=== PATIENT | male | born 1960 | race Hispanic/Latino ===

== ENCOUNTER 2024-06-15 21:44 | Emergency (ER) | payer MEDICARE ==
[~2024-06-15] VITALS: Ht 157.5 cm; Wt 73.0 kg
--- NOTE | 2024-06-15 21:51 | EKG ---
[facility] Test Date: 2024-06-15 Test Time: 21:48:43 Pat Name: VAN YOUNG Department: ED Room: Gender: M Dye Line Operator: [id number] : 1960 Requested By: OMI VILLATORO Order Number: [id number] Reading MD: Matt Wilburn Measurements Intervals [place] Rate: 80 P: 34 DE: 144 QRS: 8 QRSD: 111 T: 244 QT: 408 QTc: 469 Interpretive Statements Sinus rhythm Repol abnrm suggests ischemia, lateral leads Compared to ECG 05/29/2024 08:41:30 Early repolarization now present Possible ischemia now present Sinus tachycardia no longer present ST (T wave) deviation no longer present Electronically Signed On 06-16-2024 21:47:25 VICE INVESTIGATOR by Matt Wilburn Please click the below link to view image of tracing.
[2024-06-15 22:10] LABS: BASOPHILS # (AUTO) 0.07 K/uL (0.00-0.20); BASOPHILS % (AUTO) 0.8 % (0.0-5.0); EOSINOPHILS # (AUTO) 0.29 K/uL (0.00-0.70); EOSINOPHILS % (AUTO) 3.2 % (0.0-8.0); HEMATOCRIT 35.6 % (42-54); IMMATURE GRANULOCYTE ABSOLUTE 0.04 K/uL (0-1); LYMPHOCYTES # (AUTO) 2.5 K/uL (1.0-4.8); LYMPHOCYTES % (AUTO) 27.2 % (21.0-51.0); MEAN CORPUSCULAR HEMOGLOBIN 29.5 pg (27.0-33.0); MEAN CORPUSCULAR HGB CONC 31.7 g/dL (32.0-36.0); MONOCYTES # (AUTO) 0.9 K/uL (0.1-1.0); MONOCYTES % (AUTO) 9.6 % (3.0-13.0); NEUTROPHILS # (AUTO) 5.4 K/uL (1.8-7.7); NEUTROPHILS % (AUTO) 58.8 % (40.0-77.0); PLATELET COUNT (AUTO) 481 K/uL (130-400); RED BLOOD CELL COUNT(AUTO) 3.83 MIL/uL (4.50-6.20); RED CELL DISTRIBUTION WIDTH 14.1 % (11.0-15.5); WHITE BLOOD COUNT (AUTO) 9.2 K/uL (4.8-10.8)
[2024-06-15 22:20] LABS: CREATININE 1.4 mg/dL (0.5-1.3); POTASSIUM 3.8 mmol/L (3.5-5.1)
[2024-06-15] MEDS: PANTOPrazole 40 MG/VIAL IVP ONE (22:21)
[2024-06-15] MEDS: MAG/ALUM/SIMETH 30 ML UDCUP PO PRN (22:21)
[2024-06-15] MEDS: LIDOCAINE HCL 2% VISCOUS 15 ML UDCUP PO ONE (22:21)
[2024-06-15 22:22] LABS: INR 0.95 (0.85-1.15); PROTHROMBIN TIME 10.7 SEC (9.6-11.6)
[2024-06-15 22:23] LABS: PARTIAL THROMBOPLASTIN TIME 25.5 SEC (26.3-35.5)
[2024-06-15 22:33] LABS: B-TYPE NATRIURETIC PEPTIDE 383 pg/mL (0-100)
--- NOTE | 2024-06-15 22:33 | NUR ---
PENDING GFR RESULTS, IV SITE, & CONSENT FOR CT EXAM.
[2024-06-15 22:37] LABS: BILIRUBIN,TOTAL 0.4 mg/dL (0.2-1.0)
[2024-06-15 22:38] LABS: ALBUMIN 2.7 g/dL (3.5-5.0); TOTAL PROTEIN, SERUM 7.5 g/dL (6.0-8.3)
[2024-06-15] MEDS ORDERED: IOHEXOL-350 75 ML VIAL IV ONE (22:44)
[2024-06-15 22:50] LABS: BILIRUBIN,DIRECT 0.1 mg/dL (0.0-0.3)
--- NOTE | 2024-06-15 23:19 | HMCIMG ---
CT ABDOMEN/PELVIS W/CONTRAST HISTORY: Abdominal pain COMPARISON: None TECHNIQUE: Multiple sequential axial images of the abdomen and pelvis were obtained from the dome of the diaphragm through symphysis pubis. Patient was given 75 cc of Omnipaque through intravenous route. Oral contrast was not given. FINDINGS: There is small left pleural effusion. There is no evidence of parenchymal disease or pulmonary nodule of the visualized lower lungs. Degenerative changes of the thoracolumbar spine are present. The heart is not enlarged. Gallbladder is distended with gallstones. Liver measures 15.3 cm. The liver, spleen, adrenal glands and pancreas are unremarkable. There is no evidence of hydronephrosis bilaterally. There are mild bilateral renal cortical cysts scarring with small renal cysts. No evidence of renal stone is seen. Fecal material is seen in the colon. There are normal size retroperitoneal and mesenteric lymph nodes. No ascites is seen. Atherosclerotic changes are present. Appendix is not well seen limiting evaluation. Pelvic sidewalls are symmetric bilaterally. Bladder is well distended without wall thickening. IMPRESSION: 1. Distended gallbladder with gallstones. Small left pleural effusion. CT was performed with one or more following dose reduction techniques: automated exposure control, adjustment of the mA and kv according to patient's size, or use of a iterative reconstruction technique.
[2024-06-15] MEDS: morPHINE 2 MG SYG IVP ONE (23:34)
[2024-06-16 00:24] LABS: APPEARANCE,URINE CLEAR (CLEAR); BILIRUBIN,URINE NEGATIVE (NEGATIVE); COLOR,URINE LIGHT-YELLOW (YELLOW); GLUCOSE, URINE (UA) 500 mg/dL (NEGATIVE); KETONES,URINE NEGATIVE (NEGATIVE); LEUKOCYTE ESTERASE ,URINE NEGATIVE Leu/uL (NEGATIVE); NITRATE,URINE NEGATIVE (NEGATIVE); OCCULT BLOOD,URINE NEGATIVE (NEGATIVE); PH,URINE 5.5 (5.0-8.0); PROTEIN,URINE 20 mg/dL (NEGATIVE); UROBILINOGEN,URINE 0.2 mg/dL (0.2-1.0)
[2024-06-16 00:27] LABS: ADD UA MICROSCOPIC YES
[2024-06-16 00:28] LABS: BACTERIA,URINE FEW /HPF (None Seen); MUCUS,URINE FEW LPF (None Seen); SQUAMOUS EPITHELIAL CELL,UR RARE /HPF (0-2); WBC,URINE 0-1 /HPF (0-1)
--- NOTE | 2024-06-16 01:45 | HMCIMG ---
CHEST 1VW HISTORY: Chest pain COMPARISON: 06/07/2024 FINDINGS: A frontal projection of the chest was obtained. No acute pulmonary infiltrates is seen. The heart is borderline enlarged. Poststernotomy changes are seen. Prominent interstitial markings are seen. Degenerative changes are seen. IMPRESSION: 1. No acute pulmonary infiltrate is seen.
--- NOTE | 2024-06-16 02:19 | ERN ---
General Chief Complaint: Abdominal Pain Stated Complaint: ABD PAIN Time Seen by MD: 21:47 Time Seen by Midlevel: 21:47 Source: patient History of Present Illness Initial Comments 63-year-old male who presents to the ED due to abdominal pain onset 2 hours prior to arrival. States he was eating tacos with hot sauce prior to the abdominal pain. Reports nausea, vomiting, diarrhea but denies any chest pain, fever or further associated symptoms. CABG performed on 05/28/[address] Adam ruelas. Patient is currently taking Plavix. Allergies: Coded Allergies: No Known Drug Allergies (Unverified Allergy, Unknown, 05/27/24) Home Meds No Active Prescriptions or Reported Meds Past Medical History Past Medical History: High Cholesterol, [place], Other Medical History Other: POOR HISTORIAN Past Surgical History: Appendectomy, CABG ROS Dictation Constitutional: Negative for fever,chills, and weight loss Eyes: Negative for injury, pain,redness, and discharge ENT: Negative for injury,pain or swelling Cardiovascular: Negative for chest pain, palpitations, and edema Respiratory: Negative for shortness of breath, cough, and wheezing, Abdomen/GI: Positive for abdominal pain, nausea, vomiting, diarrhea Negative for constipation Back: Negative for injury and pain : Negative for painful urination, bleeding or discharge MS/Extremity: Negative for injury and deformity Skin: Negative for rash, and discoloration Neuro: Negative for headache, weakness, numbness, tingling, and seizure Psych: Negative for suicide ideation, homicidal ideation, and hallucinations Physical Exam Physical Exam Dictation General: awake, alert, no acute distress Head/Face: Normocephalic, atraumatic Eyes: normal conjuctiva ENT: oral mucosa moist Neck: Normal range of motion Cardiovascular: RRR, normal S1/S2 Respiratory: CTAB, no respiratory distress, no rales or wheezes Abdomen: Soft, mild epigastric and right upper quadrant tenderness, non- distended, no guarding or rebound. Skin: Warm, dry, normal turgor, no rash MS/Extremity: Pulses equal, no cyanosis, neurovascular intact, FROM Neuro: COAx4, GCS 15, no neurological deficits, normal gait, Psych: Normal behavior, mood, and affect normal Results Laboratory and Microbiology Lab and Micro Result Laboratory Tests Test 06/15/24 00:00 06/15/24 21:58 06/15/24 22:22 Urine Color LIGHT-YELLOW (YELLOW) Urine Appearance CLEAR (CLEAR) Urine pH 5.5 (5.0-8.0) Urine Specific Cecilia 1.031 (1.001-1.031) Urine Protein 20 mg/dL (NEGATIVE) H Urine Glucose (UA) 500 mg/dL (NEGATIVE) H Urine Ketones NEGATIVE mg/dL (NEGATIVE) Urine Occult Blood NEGATIVE (NEGATIVE) Urine Nitrate NEGATIVE (NEGATIVE) Urine Bilirubin NEGATIVE mg/dL (NEGATIVE) Urine Urobilinogen 0.2 mg/dL (0.2-1.0) Urine Leukocyte Esterase NEGATIVE Bharathi/uL Urine RBC 2-5 /HPF (0-1) H Urine WBC 0-1 /HPF (0-1) Urine Squamous Epithelial Cells RARE /HPF (0-2) Urine Bacteria FEW /HPF (None Seen) White Blood Count 9.2 K/uL (4.8-10.8) Red Blood Count 3.83 MIL/uL (4.50-6.20) L Hemoglobin 11.3 g/dL (14.0-18.0) L Hematocrit 35.6 % (42-54) L Mean Corpuscular Volume 93.0 fL (79-99) Mean Corpuscular Hemoglobin 29.5 pg (27.0-33.0) Mean Corpuscular Hemoglobin Concent 31.7 g/dL (32.0-36.0) L Red Cell Distribution Width 14.1 % (11.0-15.5) Platelet Count 481 K/uL (130-400) H Mean Platelet Volume 9.9 fL (7.5-10.5) Immature Granulocyte % (Auto) 0.4 % (0-1) Neutrophils (%) (Auto) 58.8 % (40.0-77.0) Lymphocytes (%) (Auto) 27.2 % (21.0-51.0) Monocytes (%) (Auto) 9.6 % (3.0-13.0) Eosinophils (%) (Auto) 3.2 % (0.0-8.0) Basophils (%) (Auto) 0.8 % (0.0-5.0) Neutrophils # (Auto) 5.4 K/uL (1.8-7.7) Lymphocytes # (Auto) 2.5 K/uL (1.0-4.8) Monocytes # (Auto) 0.9 K/uL (0.1-1.0) Eosinophils # (Auto) 0.29 K/uL (0.00-0.70) Basophils # (Auto) 0.07 K/uL (0.00-0.20) Absolute Immature Granulocyte (auto 0.04 K/uL (0-1) Nucleated Red Blood Cells 0.0 % (0.0-0.19) Prothrombin Time 10.7 SEC (9.6-11.6) Prothromb Time International Ratio 0.95 (0.85-1.15) Activated Partial Thromboplast Time 25.5 SEC (26.3-35.5) L Sodium Level 141 mmol/L (136-145) Potassium Level 3.8 mmol/L (3.5-5.1) Chloride Level 104 mmol/L (101-111) Carbon Dioxide Level 28 mmol/L (21-32) Blood Urea Nitrogen 26 mg/dL (7-18) H Creatinine 1.4 mg/dL (0.5-1.3) H Glomerular Filtration Rate Calc 56 mL/min (>90) Random Glucose 147 mg/dL (70-105) H Total Calcium 8.7 mg/dL (8.5-10.1) Total Bilirubin 0.4 mg/dL (0.2-1.0) Direct Bilirubin 0.1 mg/dL (0.0-0.3) Aspartate Amino Transf (AST/SGOT) 33 U/L (10-37) Alanine Aminotransferase (ALT/SGPT) 84 U/L (12-78) H Alkaline Phosphatase 169 U/L (50-136) H Total Creatine Kinase 66 U/L (21-232) Troponin I High Sensitivity 42 ng/L (4-75) B-Type Natriuretic Peptide 383 pg/mL (0-100) H Total Protein 7.5 g/dL (6.0-8.3) Albumin 2.7 g/dL (3.5-5.0) L Lipase 92 U/L (16-77) H Troponin I < 0.05 ng/mL (0.00-0.05) Labs Reviewed?: Yes EKG/XRAY/US/CT/MRI X-RAY Comment REASON: CHEST PAIN ORDERING PHYSICIAN: OMI HINES MD PROCEDURE: CXR1VW - CHEST 1VW CHEST 1VW HISTORY: Chest pain COMPARISON: 06/07/2024 FINDINGS: A frontal projection of the chest was obtained. No acute pulmonary infiltrates is seen. The heart is borderline enlarged. Poststernotomy changes are seen. Prominent interstitial markings are seen. Degenerative changes are seen. IMPRESSION: 1. No acute pulmonary infiltrate is seen. CT Scan Comment REASON: Abdominal pain ORDERING PHYSICIAN: MADAI COMER PROCEDURE: ABD PEL W - CT ABDOMEN/PELVIS W/CONTRAST CT ABDOMEN/PELVIS W/CONTRAST HISTORY: Abdominal pain COMPARISON: None TECHNIQUE: Multiple sequential axial images of the abdomen and pelvis were obtained from the dome of the diaphragm through symphysis pubis. Patient was given 75 cc of Omnipaque through intravenous route. Oral contrast was not given. FINDINGS: There is small left pleural effusion. There is no evidence of parenchymal disease or pulmonary nodule of the visualized lower lungs. Degenerative changes of the thoracolumbar spine are present. The heart is not enlarged. Gallbladder is distended with gallstones. Liver measures 15.3 cm. The liver, spleen, adrenal glands and pancreas are unremarkable. There is no evidence of hydronephrosis bilaterally. There are mild bilateral renal cortical cysts scarring with small renal cysts. No evidence of renal stone is seen. Fecal material is seen in the colon. There are normal size retroperitoneal and mesenteric lymph nodes. No ascites is seen. Atherosclerotic changes are present. Appendix is not well seen limiting evaluation. Pelvic sidewalls are symmetric bilaterally. Bladder is well distended without wall thickening. IMPRESSION: 1. Distended gallbladder with gallstones. Small left pleural effusion. CT was performed with one or more following dose reduction techniques: automated exposure control, adjustment of the mA and kv according to patient's size, or use of a iterative reconstruction technique. MDM MDM: Differential diagnosis: Gastritis, cholecystitis, gallstones Rationale: 63-year-old male who presents to the ED due to abdominal pain onset 2 hours prior to arrival. States he was eating tacos with hot sauce prior to the abdominal pain. Reports nausea, vomiting, diarrhea but denies any chest pain, fever or further associated symptoms. CABG performed on 05/28/[address] Finnegan. Patient is currently taking Plavix. Per physical examination mild tenderness to the epigastric and right upper quadrant. Labs obtained indicate mild anemia with hemoglobin at 11.3, BUN creatinine mildly elevated in comparison with previous labs no FLORESITA, ALT and alk- phos mildly elevated, lipase 92, negative troponin. CT abdomen and pelvis indicates a distended gallbladder with gallstones. Patient was initially administered GI cocktail in the ED with no pain improvement therefore morphine was administered and pain resolved. Patient re-evaluated by Dr. Hines, he is comfortable, in no acute distress, pain resolved, nontender. Patient was educated on findings and diagnosis. Advised to follow up with PCP. Return to the ED if any worsening symptoms. Patient verbalized understanding. Patient stable for discharge. There are no social concerns with this patient. I independently interpreted the test that were performed, results were reviewed by me and considered findings on radiology if ordered. Medical management and examination interpretation discussions were had by me with other qualified healthcare professionals as indicated for the patient's care. ED Course Orders Procedure Category Date Status Time Vital Signs Per CPOE 06/15/24 Transmitted Routine 21:46 B-Type Natriuretic LAB 06/15/24 Complete Peptide 21:46 Chest 1vw RAD 06/15/24 Resulted 21:46 12 Lead Ekg Tracing- EKG 06/15/24 Complete Technical 21:46 Oxygen By Nc/Pulse Ox CPOE 06/15/24 Transmitted 21:46 Maintain Iv CPOE 06/15/24 Transmitted 21:46 Iv Insertion CPOE 06/15/24 Transmitted 21:46 Cardiac Monitoring CPOE 06/15/24 Transmitted 21:46 Pulse Oximetry With CPOE 06/15/24 Transmitted Vs And Prn 21:46 Cbc With Differential LAB 06/15/24 Complete 21:46 Activity: Br W/Brp CPOE 06/15/24 Transmitted With Assist 21:46 Creatine Kinase, Total LAB 06/15/24 Complete 21:46 Troponin I High LAB 06/15/24 Complete Sensitivity 21:46 Urinalysis Profile LAB 06/15/24 Complete 21:46 Troponin Poc Order LAB 06/15/24 Complete Only 21:46 Bedside Troponin-I LAB.ER 06/15/24 In Process (Poc) 21:46 Basic Metabolic Panel LAB 06/15/24 Complete 21:46 Pt And Ptt LAB 06/15/24 Complete 21:47 Lipase LAB 06/15/24 Complete 21:47 Hepatic Function Panel LAB 06/15/24 Complete 21:47 Ct Abdomen/Pelvis CT 06/15/24 Resulted W/Contrast 22:06 Mag/Alum/Simeth 30ml PHA 06/15/24 In Process (Maalox Plus 30ml) 22:30 Lidocaine Hcl 2% PHA 06/15/24 Complete Viscous (Lidocaine Hcl 22:30 Pantoprazole 40mg Inj PHA 06/15/24 Complete (Protonix 40mg Inj 22:30 Iohexol (Omnipaque) PHA 06/15/24 Complete 22:44 Morphine 2mg Syg PHA 06/15/24 Complete (Morphine 2mg Syg) 23:30 Current Medications Medications (Trade) Dose Ordered Sig/Braxton Route PRN Reason Start Time Stop Time Status Last Admin Dose Admin Al Hydroxide/Mg Hydroxide (MAALox PLUS 30ML) 30 ml Q4H PRN PO HEARTBURN 06/15/24 22:30 07/15/24 22:29 06/15/24 22:21 Iohexol (Omnipaque) 75 ml STK-MED ONCE IV 06/15/24 22:44 06/15/24 22:45 DC Lidocaine HCl (Lidocaine HCl 2% Viscous) 10 ml ONCE ONCE PO 06/15/24 22:30 06/15/24 22:31 DC 06/15/24 22:21 Morphine Sulfate (morPHINE 2MG SYG) 2 mg ONCE ONCE IVP 06/15/24 23:30 06/15/24 23:31 DC 06/15/24 23:34 Pantoprazole Sodium (PROTonix 40MG INJ) 40 mg ONCE ONCE IVP 06/15/24 22:30 06/15/24 22:31 DC 06/15/24 22:21 Vital Signs Date Time Temp Pulse Resp B/P (MAP) Pulse Ox O2 Delivery O2 Flow Rate FiO2 06/16/24 01:15 78 20 130/75 98 Room Air* 0 06/15/24 22:01 97.5 75 18 143/88 99 Room Air* 0 06/15/24 21:45 97.3 85 16 155/103 97 Room Air DX & DISP Disposition: Discharge Departure Impression: Primary Impression: Biliary colic Additional Impressions: Gallstones, Gastritis Condition: Stable Scripts No Active Prescriptions or Reported Meds Additional Instructions: Discharge home. Rest. Follow up with primary care in 24 hours. Return to the ER for any acute changes or worsening symptoms. If any medications were prescribed take as directed. Okay to continue home medications unless otherwise discussed during your visit in the emergency room today. Patient was also advised to follow-up with primary care physician in 1 to 2 days for continued monitoring. Referrals: TISH HOLLIS MD (PCP) I participated in the following activities of this patient's care: For this patient encounter, I reviewed the PA or BEHAVIORAL HEALTH COUNSELOR documentation, treatment plan, and medical decision making. I did not have [id number] time with this patient. I will sign as the reviewing Dr. And agree with the treatment plan and disposition. MADAI COMER Jun 16, 2024 02:19
[2024-06-16 02:38] VITALS: BP 134/74; PULSE 72; RESP 18; TEMP 98; O2SAT 98
== END 2024-06-16 02:40 | disposition home or self-care (01) ==
LOC: EDH 21:44
DX: K80.70 Calculus of gallbladder and bile duct without cholecystitis without obstruction (principal); K29.70 Gastritis, unspecified, without bleeding; E78.00 Pure hypercholesterolemia, unspecified; Z79.02 Long term (current) use of antithrombotics/antiplatelets; Z90.49 Acquired absence of other specified parts of digestive tract; Z95.1 Presence of aortocoronary bypass graft
CPT/HCPCS: 99285; 74177; 96374; 71045; 96375; 82550; 80076; 84484 ×2; 80048; 83880; 83690; 85025; 85610; 85730; 81001; 36415; 93005; J2270; J2470; Q9967

== ENCOUNTER → 2024-09-03 | Outpatient (CLI) | payer MEDICARE ==
[2024-09-03 12:33] LABS: POTASSIUM 3.9 mmol/L (3.5-5.1)
== END | disposition home or self-care (01) ==
LOC: LAB 08:56
PROVIDERS: ATTEND Internal Medicine
DX: I25.10 Atherosclerotic heart disease of native coronary artery without angina pectoris (principal)
CPT/HCPCS: 36415; 80048